=== PATIENT | female | born 1970 | race Caucasian/White ===

== ENCOUNTER 2016-03-22 07:59 | Outpatient (RCR) | payer BC | END 2016-06-20 | disposition still patient (30) | LOC: MKS.ESL.PT | DX: M25.551 Pain in right hip (principal); M79.672 Pain in left foot ==

== ENCOUNTER 2016-08-02 08:00 | Outpatient (RCR) | payer BC | END 2016-09-19 | disposition home or self-care (01) | LOC: MKS.ESL.PT | DX: M25.551 Pain in right hip (principal); M79.672 Pain in left foot ==

== ENCOUNTER → 2017-05-26 | Outpatient (CLI) | payer BC | LOC: MC.RAD 14:00 | DX: Z12.31 Encounter for screening mammogram for malignant neoplasm of breast (principal) ==

== ENCOUNTER → 2018-06-26 | Outpatient (CLI) | payer BC | LOC: MC.RAD 07:00 | DX: Z12.31 Encounter for screening mammogram for malignant neoplasm of breast (principal) ==

== ENCOUNTER → 2018-10-11 | Outpatient (CLI) | payer BC | LOC: COL.RAD 08:08 | DX: S73.191A Other sprain of right hip, initial encounter (principal); M24.851 Other specific joint derangements of right hip, not elsewhere classified | CPT/HCPCS: A9585; Q9967 ==

== ENCOUNTER 2018-10-13 13:35 | Emergency (ER) | payer OTHER, BC ==
[~2018-10-13] VITALS: Ht 170.2 cm; Wt 68.2 kg
[2018-10-13 13:39] VITALS: TEMP 98.1
[2018-10-13] MEDS ORDERED: PAXIL 10MG10 MG PO (13:47)
[2018-10-13] MEDS ORDERED: ADDERALL30 MG PO (13:47)
[2018-10-13] MEDS ORDERED: AMOXICILLIN 8751 TAB PO (15:36)
[2018-10-13] MEDS ORDERED: PERCOCET 325 MG1 TA2 PO (15:36)
[2018-10-13 15:43] VITALS: BP 132/85; PULSE 53
== END 2018-10-13 16:13 | disposition home or self-care (01) ==
LOC: COL.ER 13:35
DX: T25.222A Burn of second degree of left foot, initial encounter (principal); T25.221A Burn of second degree of right foot, initial encounter; T31.0 Burns involving less than 10% of body surface; X12.XXXA Contact with other hot fluids, initial encounter; Y93.G3 Activity, cooking and baking
CPT/HCPCS: J1885; J3010; J7030

== ENCOUNTER 2018-10-15 11:39 | Emergency (ER) | payer OTHER, BC ==
[~2018-10-15] VITALS: Ht 170.2 cm; Wt 68.2 kg
[~2018-10-15 11:39] MED LIST: ADDERALL30 MG PO; AMOXICILLIN 8751 TAB PO; PAXIL 10MG10 MG PO; PERCOCET 325 MG1 TA2 PO
[2018-10-15 11:55] VITALS: BP 119/75; TEMP 98.4
[2018-10-15 13:12] VITALS: PULSE 63
== END 2018-10-15 13:27 | disposition home or self-care (01) ==
LOC: COL.ER 11:39
DX: T25.222A Burn of second degree of left foot, initial encounter (principal); T25.221A Burn of second degree of right foot, initial encounter; X12.XXXA Contact with other hot fluids, initial encounter

== ENCOUNTER 2018-10-20 11:20 | Outpatient (RCR) | payer OTHER ==
[2018-10-20] MEDS ORDERED: OMNICEF 300MG300 MG PO (13:58)
[2018-10-20] MEDS ORDERED: DOXYCYCLINE 10100 MG PO (13:58)
[2018-10-20] MEDS ORDERED: PERCOCET 325 MG1 TA2 PO (14:32)
[2018-10-20] MEDS ORDERED: NEURONTIN300 MG/CAP PO (14:55)
== END 2019-01-15 | disposition home or self-care (01) ==
LOC: WSOH
DX: T25.222A Burn of second degree of left foot, initial encounter (principal); T25.221A Burn of second degree of right foot, initial encounter; T25.211A Burn of second degree of right ankle, initial encounter; T25.212A Burn of second degree of left ankle, initial encounter; L03.115 Cellulitis of right lower limb; X12.XXXA Contact with other hot fluids, initial encounter; Y92.214 College as the place of occurrence of the external cause; Y99.0 Civilian activity done for income or pay; Z90.49 Acquired absence of other specified parts of digestive tract

== ENCOUNTER 2018-10-20 12:31 | Emergency (ER) | payer OTHER ==
[~2018-10-20] VITALS: Ht 170.2 cm; Wt 68.2 kg
[2018-10-20 12:35] VITALS: BP 133/75; TEMP 98.3
[2018-10-20 13:06] LABS: BASO # 0.1 (0.0-0.2); BASO % 0.5 % (0.0-2.0); EOS # 0.1 (0.0-0.7); EOS % 1.3 % (0-4.0); GRAN # 8.2 (1.4-6.5); GRAN % 79.3 % (42.2-75.2); HEMATOCRIT 44.4 % (37.0-47.0); HEMOGLOBIN 14.5 g/dl (12.5-16.0); LYMPH # 1.1 (1.2-3.4); LYMPH % 10.6 % (20.0-51.0); MEAN CELL VOLUME 91 fl (80.0-100.0); MEAN CORPUSCULAR HEMOGLOBIN 30 pg (27.0-31.0); MEAN CORPUSCULAR HGB CONC 33 g/dl (33.0-37.0); MEAN PLATELET VOLUME 10.1 fl (7.4-10.4); MONO # 0.8 (0.1-0.6); MONO % 7.8 % (1.7-9.3); PLATELET COUNT 212 K/mm3 (130-400); RED BLOOD COUNT 4.89 M/mm3 (4.10-5.30); REDCELL DISTRIBUTION WIDTH-CV 12.3 % (11.5-14.5)
[2018-10-20 13:15] LABS: ALBUMIN 4.1 gm/dL (3.5-5.0); BILIRUBIN,TOTAL 0.7 mg/dL (0.0-1.0); C-REACTIVE PROTEIN 3.3 mg/dL (0.0-0.9); CALCIUM 9.7 mg/dL (8.4-10.2); CREATININE, serum 0.75 (0.52-1.25); POTASSIUM 4.6 mmol/L (3.4-5.0); TOTAL PROTEIN 7.5 gm/dL (6.4-8.2)
[2018-10-20 13:28] LABS: ERYTHROCYTE SEDIMENTATION RATE 13 mm/hr (0-20)
[2018-10-20] MEDS ORDERED: DOXYCYCLINE 10100 MG PO (13:58)
[2018-10-20] MEDS ORDERED: OMNICEF 300MG300 MG PO (13:58)
[2018-10-20] MEDS ORDERED: PERCOCET 325 MG1 TA2 PO (14:32)
[2018-10-20] MEDS ORDERED: NEURONTIN300 MG/CAP PO (14:55)
[2018-10-20 16:22] VITALS: PULSE 57
== END 2018-10-20 16:22 | disposition home or self-care (01) ==
LOC: COL.ER 12:31
PROVIDERS: Emergency Medicine
DX: Z90.49 Acquired absence of other specified parts of digestive tract (principal); L03.116 Cellulitis of left lower limb; L03.115 Cellulitis of right lower limb
CPT/HCPCS: J1885; J2060; J2270; J2543; J3010; J3370; J7030; J7050

== ENCOUNTER 2018-10-21 23:42 | Emergency (ER) | payer OTHER ==
[~2018-10-21] VITALS: Ht 170.2 cm; Wt 68.2 kg
[~2018-10-21 23:42] MED LIST changes: +DOXYCYCLINE 10100 MG PO; +NEURONTIN300 MG/CAP PO; +OMNICEF 300MG300 MG PO
[2018-10-21 23:51] VITALS: BP 127/73; TEMP 97.9
[2018-10-22 00:27] LABS: BASO % 0.7 % (0.0-2.0); EOS # 0.2 (0.0-0.7); EOS % 3.4 % (0-4.0); GRAN # 3.7 (1.4-6.5); GRAN % 61.6 % (42.2-75.2); LYMPH # 1.5 (1.2-3.4); LYMPH % 25.7 % (20.0-51.0); MEAN CELL VOLUME 90 fl (80.0-100.0); MEAN CORPUSCULAR HGB CONC 34 g/dl (33.0-37.0); MEAN PLATELET VOLUME 9.8 fl (7.4-10.4); MONO # 0.5 (0.1-0.6); MONO % 8.4 % (1.7-9.3); PLATELET COUNT 177 K/mm3 (130-400); RED BLOOD COUNT 3.77 M/mm3 (4.10-5.30); REDCELL DISTRIBUTION WIDTH-CV 12.2 % (11.5-14.5)
[2018-10-22 00:30] LABS: HEMOGLOBIN 11.5 g/dl (12.5-16.0); MEAN CORPUSCULAR HEMOGLOBIN 31 pg (27.0-31.0)
[2018-10-22 00:37] LABS: CALCIUM 8.9 mg/dL (8.4-10.2); CREATININE, serum 0.66 (0.52-1.25); POTASSIUM 4.3 mmol/L (3.4-5.0)
[2018-10-22 06:42] VITALS: PULSE 53
== END 2018-10-22 06:42 | disposition short-term general hospital (02) ==
LOC: COL.ER 23:42
PROVIDERS: Emergency Medicine
DX: L03.115 Cellulitis of right lower limb (principal)
CPT/HCPCS: 99222; J2543; J3010; J3370; J7050

== ENCOUNTER 2019-01-23 13:30 | Outpatient (RCR) | payer OTHER | END 2019-02-14 10:28 | disposition home or self-care (01) | LOC: WSPT 13:30 | DX: T25.321D Burn of third degree of right foot, subsequent encounter (principal); L90.5 Scar conditions and fibrosis of skin ==

== ENCOUNTER → 2019-07-11 | Outpatient (CLI) | payer BC | LOC: MC.RAD 16:45 | DX: Z12.31 Encounter for screening mammogram for malignant neoplasm of breast (principal) ==

== ENCOUNTER → 2020-08-28 | Outpatient (CLI) | payer BC | LOC: MC.RAD 07-16 14:45 | DX: Z12.31 Encounter for screening mammogram for malignant neoplasm of breast (principal) ==

== ENCOUNTER 2021-12-01 09:30 | Outpatient (RCR) | payer BC | END 2021-12-03 | disposition home or self-care (01) | LOC: WSOT | DX: M18.12 Unilateral primary osteoarthritis of first carpometacarpal joint, left hand (principal) ==

== ENCOUNTER → 2021-12-10 | Outpatient (CLI) | payer BC | LOC: MC.RAD 11-11 13:45 | DX: Z12.31 Encounter for screening mammogram for malignant neoplasm of breast (principal) ==

== ENCOUNTER 2021-12-29 08:45 | Outpatient (RCR) | payer BC | END 2022-01-03 | disposition home or self-care (01) | LOC: WSOT | DX: M18.12 Unilateral primary osteoarthritis of first carpometacarpal joint, left hand (principal); Z96.692 Finger-joint replacement of left hand ==

== ENCOUNTER 2022-03-29 14:45 | Outpatient (RCR) | payer BC | END 2022-04-05 | disposition home or self-care (01) | LOC: WSPT | DX: M54.50 Low back pain, unspecified (principal) ==